=== PATIENT | female | born 1965 | race Caucasian/White ===

== ENCOUNTER → 2016-09-24 | Outpatient (CLI) | payer OTHER | LOC: BHSO 14:50 | DX: F31.81 Bipolar II disorder (principal) ==

== ENCOUNTER → 2016-11-05 | Outpatient (CLI) | payer OTHER | LOC: BHSO 14:49 | DX: F31.31 Bipolar disorder, current episode depressed, mild (principal) ==

== ENCOUNTER → 2016-12-25 | Outpatient (CLI) | payer OTHER | LOC: BHSO 15:00 | DX: F31.81 Bipolar II disorder (principal) ==

== ENCOUNTER → 2017-02-09 | Outpatient (CLI) | payer OTHER | LOC: BHSO 12:52 | DX: F31.31 Bipolar disorder, current episode depressed, mild (principal) ==

== ENCOUNTER → 2017-04-13 | Outpatient (CLI) | payer OTHER | LOC: BHSO 14:48 | DX: F31.31 Bipolar disorder, current episode depressed, mild (principal) ==

== ENCOUNTER → 2017-04-22 | Outpatient (CLI) | payer OTHER | LOC: BHSO 14:58 | DX: F31.81 Bipolar II disorder (principal) ==

== ENCOUNTER → 2017-05-12 | Outpatient (CLI) | payer OTHER | LOC: BHSO 15:05 | DX: F31.32 Bipolar disorder, current episode depressed, moderate (principal) ==

== ENCOUNTER → 2017-06-18 | Outpatient (CLI) | payer OTHER | LOC: BHSO 14:49 | DX: F31.81 Bipolar II disorder (principal) ==

== ENCOUNTER → 2017-06-23 | Outpatient (CLI) | payer OTHER | LOC: BHSO 14:31 | DX: F31.31 Bipolar disorder, current episode depressed, mild (principal) ==

== ENCOUNTER → 2017-10-21 | Outpatient (CLI) | payer OTHER | LOC: BHSO 14:06 | DX: F31.11 Bipolar disorder, current episode manic without psychotic features, mild (principal) ==

== ENCOUNTER → 2017-11-09 | Outpatient (CLI) | payer OTHER | LOC: BHSO 10:11 | DX: F31.81 Bipolar II disorder (principal) | CPT/HCPCS: G0463 ==

== ENCOUNTER → 2018-03-04 | Outpatient (CLI) | payer OTHER | LOC: BHSO 14:02 | DX: F31.81 Bipolar II disorder (principal) | CPT/HCPCS: G0463 ==

== ENCOUNTER → 2018-08-22 | Outpatient (CLI) | payer OTHER | LOC: BHSO 14:04 | DX: F31.81 Bipolar II disorder (principal) | CPT/HCPCS: G0463 ==

== ENCOUNTER → 2018-09-20 | Outpatient (CLI) | payer OTHER | LOC: BHSO 15:03 | DX: F31.81 Bipolar II disorder (principal) ==

== ENCOUNTER → 2018-10-19 | Outpatient (CLI) | payer OTHER | LOC: BHSO 14:32 | DX: F31.11 Bipolar disorder, current episode manic without psychotic features, mild (principal) ==

== ENCOUNTER → 2018-11-16 | Outpatient (CLI) | payer OTHER | LOC: BHSO 14:50 | DX: F31.11 Bipolar disorder, current episode manic without psychotic features, mild (principal) ==

== ENCOUNTER → 2018-11-21 | Outpatient (CLI) | payer OTHER | LOC: BHSO 14:00 | DX: F43.10 Post-traumatic stress disorder, unspecified (principal) | CPT/HCPCS: G0463 ==

== ENCOUNTER → 2018-12-23 | Outpatient (CLI) | payer OTHER | LOC: BHSO 14:58 | DX: F31.11 Bipolar disorder, current episode manic without psychotic features, mild (principal) ==

== ENCOUNTER → 2019-04-14 | Outpatient (CLI) | payer OTHER | LOC: BHSO 14:08 | DX: F43.10 Post-traumatic stress disorder, unspecified (principal) | CPT/HCPCS: G0463 ==

== ENCOUNTER → 2019-06-07 | Outpatient (CLI) | payer OTHER | LOC: BHSO 13:11 | DX: F31.81 Bipolar II disorder (principal) ==

== ENCOUNTER 2021-12-08 15:35 | Day surgery (SDC) | payer OTHER ==
[~2021-12-08] VITALS: Ht 157.5 cm; Wt 127.1 kg
[2021-12-08 16:00] VITALS: BP 114/71; PULSE 71
[2021-12-08] MEDS ORDERED: ZANAFLEX 4MG TAB4 MG PO (16:15)
[2021-12-08] MEDS ORDERED: ULTRAM 50MG TAB50 MG PO (16:15)
[2021-12-08] MEDS ORDERED: NEURONTIN600 MG/TAB PO (16:16)
[2021-12-08] MEDS ORDERED: NATURAL IRON65 MG (16:17)
[2021-12-08] MEDS ORDERED: GLUCOPHAGE XR500 M1 PO (16:17)
[2021-12-08] MEDS ORDERED: TOPAMAX 25MG25 M1 PO (16:17)
[2021-12-08] MEDS ORDERED: CYANOCOBAL1000 MCG/1 SQ (16:18)
[2021-12-08] MEDS ORDERED: VRAYLAR3 MG (16:19)
[2021-12-08] MEDS ORDERED: SYNTHROID0.05 MG/TA PO (16:20)
[2021-12-08] MEDS ORDERED: MAG-OX 400400 MG/TAB PO (16:20)
[2021-12-08 16:21] VITALS: BP 114/71; PULSE 55; TEMP 97.8
[2021-12-08 19:27] VITALS: BP 109/67; PULSE 69; TEMP 98
--- NOTE | 2021-12-08 23:35 | NUR ---
PATIENT ALERT AND ORIENTED. C/O MILD DISCOMFORT TO ABD/FLANK, SALES FACILITATOR MORPHINE INFUSING. PATIENT TO BE NPO AT MIDNIGHT. IV R AC PATENT AND FLUSHED. VOIDING TEA COLORED URINE THAT IS BEING STRAINED. DENIES ADDITIONAL NEEDS.
[2021-12-08 23:55] VITALS: BP 94/66; PULSE 97; TEMP 97.4
[2021-12-09] VITALS (11 sets, daily range): BP systolic 97–132; BP diastolic 54–83; PULSE 60–71; TEMP 97.7–98.2
--- NOTE | 2021-12-09 00:38 | NUR ---
alerted by paving bed maker that patients bp was 90/60s. call placed to dr finney. order to decrease crate liner dose to 1 mg q 15 minutes and additional order for toradol for breakthrough pain. patient in agreeance with this change.
--- NOTE | 2021-12-09 09:24 | NUR ---
Community Engagement Leader met with patient to discuss discharge planning. Patient lives in [place] with her , Jeremias (ph#[phone]) and sees Dr. Noe for primary care at [facility]. Patient also obtains medications at [facility]. Patient uses a CPAP and no other DME at home. Patient is independent with ADLS and plans to return home at time of discharge. Patient reports her is her DPOA-HC. Discharge Plan: Home
--- NOTE | 2021-12-09 09:30 | NUR ---
pt was having complaints of a headache. Reports that her flank pain is better, but she is asking for pain for her head. Toradol given. Pt aware that she is going to be having surgery today, consent has been signed. Pt does not have any questions, she is aware that she is not to have anything to eat or drink until after surgery.
--- NOTE | 2021-12-09 12:33 | NUR ---
Pt continues to do okay. Using INSTRUCTIONAL TECHNOLOGY TEACHER for pain management, but reports that she does not use it often. Pt does have family in the room with her at this time
--- NOTE | 2021-12-09 12:52 | NUR ---
Sendy: No synagogue preference Situation: Plant Reliability Engineer stopped by on rounds Background: PT seemed concerned with what is going on in her life Assessment: PT asked online merchandising coordinator to pray with her. Plant Reliability Engineer prayed and patient was very appreciative. Recommendation: Plant Reliability Engineer will follow up as needed
--- NOTE | 2021-12-09 14:06 | NUR ---
Pt off the floor at this time for surgery
[2021-12-09] MEDS ORDERED: NORCO 325 MG-51 TAB PO (14:24)
[2021-12-09] MEDS ORDERED: PYRIDIUM 100MG100 MG PO (14:24)
--- NOTE | 2021-12-09 15:47 | NUR ---
Pt arrived to the floor from [place]. She is alert and oriented, pain complaints 5/10, reports it is better and tolerable. Educated pt on room service. Pt has been up to the restroom and did void. Informed her and her of the discharge plans. all questions answered
--- NOTE | 2021-12-09 17:10 | NUR ---
Reviewed discharge instructions as well as prescriptions and the office calling with follow up appointment with pt and her . They verbalized understanding. INT removed from right AC and pt escorted out via wheelchair
== END 2021-12-09 17:30 | disposition home or self-care (01) ==
LOC: SDCO 15:35 → SURG 15:35 → SDCO 15:36 → SURG 15:36 → SDCO 12-09 17:30
DX: N13.2 Hydronephrosis with renal and ureteral calculous obstruction (principal); E11.9 Type 2 diabetes mellitus without complications; G47.33 Obstructive sleep apnea (adult) (pediatric); Z28.310 Unvaccinated for COVID-19; Z28.9 Immunization not carried out for unspecified reason; Z20.822 Contact with and (suspected) exposure to COVID-19; Z79.84 Long term (current) use of oral hypoglycemic drugs
CPT/HCPCS: OP; C1769; C2617; G0378; J0690; J1100; J1170; J1885; J2270; J2405; J2704; J3010; J7030; Q9967

== ENCOUNTER → 2022-01-21 | Outpatient (CLI) | payer OTHER ==
[~2022-01-21] MED LIST: CYANOCOBAL1000 MCG/1 SQ; GLUCOPHAGE XR500 M1 PO; MAG-OX 400400 MG/TAB PO; NATURAL IRON65 MG; NEURONTIN600 MG/TAB PO; NORCO 325 MG-51 TAB PO; PYRIDIUM 100MG100 MG PO; SYNTHROID0.05 MG/TA PO; TOPAMAX 25MG25 M1 PO; ULTRAM 50MG TAB50 MG PO; VRAYLAR3 MG; ZANAFLEX 4MG TAB4 MG PO
== END ==
LOC: MHCPAIN 13:07
DX: M17.12 Unilateral primary osteoarthritis, left knee (principal); M25.562 Pain in left knee; M79.2 Neuralgia and neuritis, unspecified
CPT/HCPCS: G0463

== ENCOUNTER → 2022-01-29 | Outpatient (CLI) | payer OTHER | LOC: MHCPAIN 12:47 | DX: M25.562 Pain in left knee (principal); M79.2 Neuralgia and neuritis, unspecified; M17.12 Unilateral primary osteoarthritis, left knee ==

== ENCOUNTER → 2022-02-03 | Outpatient (CLI) | payer OTHER | LOC: MHCPAIN 12:49 | DX: M25.562 Pain in left knee (principal); M17.12 Unilateral primary osteoarthritis, left knee; M79.2 Neuralgia and neuritis, unspecified | CPT/HCPCS: G0463 ==

== ENCOUNTER → 2022-02-12 | Outpatient (CLI) | payer OTHER | LOC: MHCPAIN 09:06 | DX: M25.562 Pain in left knee (principal); M79.2 Neuralgia and neuritis, unspecified; M17.12 Unilateral primary osteoarthritis, left knee ==

== ENCOUNTER → 2022-03-12 | Outpatient (CLI) | payer OTHER | LOC: MHCPAIN 03-05 15:52 | DX: M25.561 Pain in right knee (principal); M17.11 Unilateral primary osteoarthritis, right knee; M79.2 Neuralgia and neuritis, unspecified | CPT/HCPCS: G0463 ==

== ENCOUNTER → 2022-05-13 | Outpatient (CLI) | payer OTHER | LOC: MHCPAIN 14:16 | DX: M25.561 Pain in right knee (principal); M17.11 Unilateral primary osteoarthritis, right knee; M25.562 Pain in left knee; G89.29 Other chronic pain | CPT/HCPCS: G0463 ==

== ENCOUNTER → 2023-11-04 | Outpatient (CLI) | payer OTHER | LOC: COL.RAD 07:53 | DX: Z01.818 Encounter for other preprocedural examination (principal); Z86.718 Personal history of other venous thrombosis and embolism ==